=== PATIENT | male | born 1980 | race Caucasian/White ===

== ENCOUNTER 2016-09-11 08:01 | Emergency (ER) | payer MEDICAID ==
[2016-09-11 08:05] VITALS: TEMP 98; BMI 28.8
[2016-09-11] MEDS ORDERED: MORPHINE 4 MG/ML INJECTION IV ONE (08:32)
[2016-09-11] MEDS ORDERED: ONDANSETRON HCL 4 MG/2 ML VIAL IV ONE (08:32)
[2016-09-11] MEDS ORDERED: Pharmacy Review for Metformin - IV Contrast Given SCH (09:00)
--- NOTE | 2016-09-11 09:04 | EDPRACDOC ---
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 HE HIT HIS RIGHT CHEST AND HAS PAIN THERE AND IN HIS UPPER RIGHT ABDOMEN. NO LOC. Pain Severity: Reports: Moderate Injuries/Pain Location: Reports: chest, abdomen Reason for Fall: Reports: slipped Loss of Consciousness: no loss of consciousness Associated Symptoms (Fall): Reports: abdominal pain, chest pain Allergies/Adverse Reactions: Allergies No Known Allergies Allergy (Verified 09/11/16 08:05) Home Medications: Ambulatory Orders Ibuprofen 800 mg PO Q8H PRN #20 tablet 09/11/16 Oxycodone HCl [Roxicodone] 5 mg PO Q6H #20 tablet 09/11/16 Sumatriptan Succinate [Imitrex] 50 mg PO DIR PRN 09/11/16 ED Past Medical History - Patient Medical History Neurological History: Reports: Migraine Psychological History: Denies: Depression Additional Past Medical History: CROHN'S DISEASE Surgical History: Reports: Cholecystectomy, Other (BACK SURGERY) - Social Medical History Smoking Status: Heavy tobacco smoker (5 or more cigarettes/day or daily pipe/ cigar) ETOH: None Substance Abuse: None Lives In: Home EDM Review of Systems - Review of Systems ROS Negative Except as Marked: Yes All systems reviewed and were negative except as marked Gastrointestinal: Pain Musculoskeletal: Chestwall - Physical Exam Constitutional: Alert (Awake), No apparent distress Oriented to: Time, Person, Place Last recorded Vital Signs: Last Vital Signs Temp 98.0 F 09/11/16 08:02 Pulse 72 09/11/16 08:57 Resp 18 09/11/16 08:57 BP 104/53 L 09/11/16 08:57 Pulse Ox 94 09/11/16 08:57 Oxygen Pulse Oxygen Saturation 94 O2 Device Room Air Oxygen Flow Rate Fraction of Inspired Oxygen ( FIO2) - HEENT Head: Normal ( normocephalic) Eye Exam: Normal (PERRL, EOMI, Sclera white) Oropharynx: Normal (Pharynx:Moist without exudate,Gums-no swelling) ENT EAC: Normal TMJ: Normal Nose: No Symptoms Reported (septum midline) Neck: Normal (FROM, trachea at midline) - Respiratory/Cardiovascular Respiratory: Normal - CTA (BBS clear to auscultation without adventitious sounds ) Cardiovascular: Normal (RRR without murmur, gallop or rub) Respiratory/Cardiovascular Comment: LARGE RIGHT SIDED ABRASION AND TENDERNESS - GI Auscultation: Normal (NABS) Palpation: Normal (Soft,No rebound or guarding, non distended) Tenderness: Moderate, RUQ Keane's Sign: Negative - Musculoskeletal Back: Normal (Non-Tender) Extremities: Normal (Normal tone, Pulses 2+ No cyanosis or edema, FROM) - Integumentary Skin: Normal, Warm, Dry Lymphatics: Normal (no adenopathy) - Neurologic Memory Impaired: Normal Motor Function: Normal (Normal tone, Pulses 2+ No cyanosis or edema, FROM) Cranial Nerve: Normal (CN II-X11 intact sensation, strength 5/5) Cerebellar: Normal Mood Description: Normal Thought: Coherent Perception: Normal - Re-evaluation Re-evaluation 1 Re-evaluation Time: 09:45 (improved) - Diagnostic Imaging Chest Image interpreted by: Radiologist 1. No acute injury of the chest, abdomen or pelvis. 2. Mild bilateral gynecomastia. Decision Time to Discharge: 09:45 - Departure Yes I personally saw and evaluated the patient. Disposition: Home Condition: Fair Final Diagnosis: Accidental fall, Contusion of right chest wall Instructions: RICE Therapy (ED), Rib Fracture (ED) Education/Counseling Given To: Patient Education/Counseling Given Regarding: Diagnosis, Treatment, Follow Up Referrals: None,No Provider [Primary Care Provider] - One Week Angel Yanes MD [Staff Physician] - One Week Prescriptions: New Oxycodone HCl [Roxicodone] 5 mg PO Q6H #20 tablet Ibuprofen 800 mg PO Q8H PRN #20 tablet PRN Reason: Pain No Action Sumatriptan Succinate [Imitrex] 50 mg PO DIR PRN PRN Reason: MIGRAINES Forms: Excuse Note
--- NOTE | 2016-09-11 09:39 | DIRPT ---
CLINICAL DATA: Status post fall off a ladder. EXAM: CT CHEST, ABDOMEN, AND PELVIS WITH CONTRAST TECHNIQUE: Multidetector CT imaging of the chest, abdomen and pelvis was performed following the standard protocol during bolus administration of intravenous contrast. CONTRAST: 100 mL Isovue 370 COMPARISON: 09/22/2015 FINDINGS: CT CHEST FINDINGS Mediastinum/Lymph Nodes: Normal heart size. No pericardial effusion. Normal caliber thoracic aorta. No masses, pathologically enlarged lymph nodes, or other significant abnormality. Lungs/Pleura: No focal consolidation, pleural effusion or pneumothorax. Musculoskeletal: No lytic or sclerotic osseous lesion. No acute osseous abnormality. Chest wall: Minimal retroareolar fibroglandular tissue as can be seen with mild gynecomastia. CT ABDOMEN PELVIS FINDINGS Hepatobiliary: Stable 17 x 27 mm hypodense right hepatic mass unchanged compared with 09/19/2007. No other hepatic mass. Prior cholecystectomy. Pancreas: No mass, inflammatory changes, or other significant abnormality. Spleen: Within normal limits in size and appearance. Adrenals/Urinary Tract: Normal adrenal glands. No obstructive uropathy. No renal mass. Tiny nonobstructing punctate left renal calculus. Normal bladder. Stomach/Bowel: No evidence of obstruction, inflammatory process, or abnormal fluid collections. Vascular/Lymphatic: No pathologically enlarged lymph nodes. No evidence of abdominal aortic aneursym. Reproductive: No mass or other significant abnormality. Other: None. Musculoskeletal: No aggressive lytic or sclerotic osseous lesion. No acute osseous abnormality. IMPRESSION: 1. No acute injury of the chest, abdomen or pelvis. 2. Mild bilateral gynecomastia. Electronically Signed By: Janet Neves On: 09/11/2016 09:36
[2016-09-11 09:55] VITALS: BP 125/66; PULSE 66
== END 2016-09-11 10:04 | disposition home or self-care (01) ==
LOC: ED 08:01
DX: S20.211A Contusion of right front wall of thorax, initial encounter (principal); W11.XXXA Fall on and from ladder, initial encounter; F17.200 Nicotine dependence, unspecified, uncomplicated; R10.11 Right upper quadrant pain; Y99.0 Civilian activity done for income or pay
CPT/HCPCS: 71260; 74177; 96374; 96375; 99283; A9698; G0237; J2270; J2405